=== PATIENT | female | born 1980 | race Caucasian/White ===

== ENCOUNTER 2022-05-16 02:09 | Emergency (ER) | payer MEDICAID ==
[~2022-05-16] VITALS: Ht 165.1 cm; Wt 102.0 kg
[2022-05-16 02:13] VITALS: TEMP 98
[2022-05-16] MEDS ORDERED: DOXYCYCLINE HY100 MG PO (03:13)
[2022-05-16] MEDS ORDERED: NAPROSYN500 MG PO (03:13)
[2022-05-16 03:30] VITALS: BP 118/78; PULSE 89
== END 2022-05-16 03:30 | disposition home or self-care (01) ==
LOC: COL.ER 02:09
DX: S20.212A Contusion of left front wall of thorax, initial encounter (principal); L30.9 Dermatitis, unspecified; Z28.310 Unvaccinated for COVID-19; W01.0XXA Fall on same level from slipping, tripping and stumbling without subsequent striking against object, initial encounter; Y92.828 Other wilderness area as the place of occurrence of the external cause